=== PATIENT | female | born 1990 | race Caucasian/White ===

== ENCOUNTER 2019-03-15 11:09 | Outpatient (CLI) | payer MEDICAID ==
--- NOTE | 2019-03-15 15:54 | Non Stress Test Report ---
Non Stress Test Datetime Report Generated by CPN: 03/15/2019 15:54 DEMOGRAPHIC EGA NST: 35.0 INDICATION Indication for Study: Diabetes Mellitus Indication for Study (NST) Other: repeat NST from the office MONITORING Monitor Explained: Monitor Explained; Test Explained; Patient Verbalized Understanding Time on Monitor: 03/15/2019 11:28 Time off Monitor: 03/15/2019 11:50 NST Duration: 22 NST INTERVENTIONS NST Interventions: None Physician Notified NST: K Velazquez CNM BABY A: [id number] BABY A Movement : Present Contraction Frequency : none FHR Baseline : 125 Accelerations : 15X15 Decelerations : None Variability : Moderate 6-25bpm NST Review: Meets Criteria for Reactive NST NST Review and Verified By : B Baidy RN NST Results: Reactive NST COMMENTS NST Comments: care notes reviewed and signed for kick counts NST REPORT Report Trigger: Send Report
== END 2019-03-15 12:00 | disposition home or self-care (01) ==
LOC: LC 11:09
PROVIDERS: ATTEND Obstetrics & Gynecology
PROC: 4A1HXCZ Monitoring of Products of Conception, Cardiac Rate, External Approach (ICD-10-PCS; principal; 2019-03-15)
DX: O24.410 Gestational diabetes mellitus in pregnancy, diet controlled (principal); Z3A.35 35 weeks gestation of pregnancy
CPT/HCPCS: 59025

== ENCOUNTER 2019-04-11 19:46 | Inpatient (IN) | payer MEDICAID ==
[2019-04-11] MEDS ORDERED: ZOLPIDEM TARTRATE 5 MG TABLET PO PRN (20:19)
[2019-04-11] MEDS ORDERED: RINGERS SOLUTION,LACTATED 300 ML IV ONE (20:19)
[2019-04-11] MEDS ORDERED: OXYTOCIN/NORMAL SALINE 20 UNIT/1,000 ML RTUINJ IV PRN (20:19)
[2019-04-11] MEDS ORDERED: ACETAMINOPHEN 325 MG TABLET PO PRN (20:19)
[2019-04-11] MEDS ORDERED: MAG HYDROX/AL HYDROX/SIMETH SUSP 30 ML UDCUP PO PRN (20:19)
[2019-04-11] MEDS ORDERED: DINOPROSTONE 10 MG VAGINAL INSERT.SR PV ONE (20:19)
[2019-04-11] MEDS ORDERED: DINOPROSTONE 10 MG VAGINAL INSERT.SR ONE (20:27)
[2019-04-11 21:19] LABS: ABSOLUTE EOSINOPHILS # (AUTO) 0.1 10^3/uL (0.0-0.6); ABSOLUTE LYMPHOCYTES (AUTO) 2.4 10^3/uL (0.5-4.7); ABSOLUTE MONOCYTES (AUTO) 1.3 10^3/uL (0.1-1.4); ABSOLUTE NEUT (AUTO) 8.8 10^3/uL (1.7-8.2); BASOPHILS % (AUTO) 0.2 % (0-2); EOSINOPHILS % (AUTO) 0.7 % (0-6); HEMATOCRIT 35.1 % (36.0-47.0); LYMPHOCYTES % (AUTO) 19.2 % (13-45); MEAN CORPUSCULAR HEMOGLOBIN 31.5 pg (27.0-33.4); MEAN CORPUSCULAR HGB CONC 34.1 g/dL (32.0-36.0); MEAN CORPUSCULAR VOLUME 92 fl (80-97); MONOCYTES % (AUTO) 10.4 % (3-13); PLATELET COUNT 161 10^3/uL (150-450); RED CELL DISTRIBUTION WIDTH 12.7 % (11.5-14.0); SEGMENTED NEUTROPHILS % (AUTO) 69.5 % (42-78); TOTAL CELLS COUNTED % (AUTO) 100 %; WHITE BLOOD COUNT 12.6 10^3/uL (4.0-10.5)
[2019-04-11 21:22] LABS: APPEARANCE,URINE SLIGHTLY-CLOUDY; BILIRUBIN,URINE NEGATIVE (NEGATIVE); COLOR,URINE YELLOW; GLUCOSE, URINE 50 mg/dL (NEGATIVE); KETONES,URINE NEGATIVE (NEGATIVE); LEUKOCYTE ESTERASE,URINE TRACE (NEGATIVE); NITRITE,URINE NEGATIVE (NEGATIVE); PROTEIN,URINE NEGATIVE (NEGATIVE); URINE SPECIFIC GRAVITY 1.018; UROBILINOGEN,URINE NEGATIVE mg/dL (<2.0)
[2019-04-11 21:39] LABS: URINE AMPHETAMINES SCREEN NEGATIVE; URINE BARBITURATES SCREEN NEGATIVE; URINE BENZODIAZEPINES SCREEN NEGATIVE; URINE COCAINE SCREEN NEGATIVE; URINE MARIJUANA (THC) SCREEN NEGATIVE; URINE METHADONE SCREEN NEGATIVE; URINE PHENCYCLIDINE SCREEN NEGATIVE
[2019-04-12] MEDS ORDERED: ZOLPIDEM TARTRATE 5 MG TABLET ONE (02:36)
--- NOTE | 2019-04-12 05:41 | Admission Physical ---
Datetime Report Generated by CPN: 04/12/2019 05:41 CURRENT ADMISSION Chief Complaint: Uterine Contractions Indication for Induction- Other: gestational diabites Admit Impression : Term, Intrauterine Admit Plan: Admit to Unit; Initiate Labor Induction Protocol ALLERGIES Medication Allergies: No Medication Allergies: nickel (04/11/2019) Latex: No Latex Allergies OBSTETRICAL HISTORY EDC: 04/19/2019 00:00 : 1 Para: 0 Term: 0 : 0 SAB: 0 IAB: 0 Ectopic: 0 Livin Cesareans: 0 VBACs: 0 Multiple Births: 0 Gestational Diabetes: No Rh Sensitization: No Incompetent Cervix: No BONI: No Infertility: No ART Treatment: No Uterine Anomaly: No IUGR: No Hx Previous C/S: No Macrosomia: No Hx Loss/Stillborn: No PIH: No Hx : No Placenta Previa/Abruption: No Depression/PP Depression: No PTL/PROM: No Post Hemorrhage: No Current Procedures: Ultrasound; NST Obstetrical History Comments: G1- current GDM on glyburide SEE RECORDS Alcohol: No Marijuana : No Cocaine: No Other Illicit Drugs: No Cigarettes: Never Smoker. 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 Surgery: No Heart Disease: No Hosp/Surgery: No Autoimmune Disorder: No Anesthetic Complications: No Kidney Disease: No Abnormal Pap Smear: No Neuro/Epilepsy: No Psychiatric Disorders: No Other Medical Diseases: No Hepatitis/Liver Disease: No Significant Family History: No Varicosities/Phlebitis: No Trauma/Violence : No Thyroid Dysfunction: No INFECTIOUS HISTORY Gonorrhea: No Genital Herpes: No Chlamydia: No Tuberculosis: No Syphilis: No Hepatitis: No HIV/AIDS Exposure: No Rash or Viral Illness: No HPV: No PHYSICAL EXAM General: Normal HEENT: Normal Neurologic: Normal Thyroid: Normal Heart: Normal Lungs: Normal Breast: Deferred Back: Normal Abdomen: Normal Genitourinary Exam: Normal Extremities: Normal DTRs: Normal Pelvic Type: Adequate Vital Signs: Reviewed VAGINAL EXAM Dilatation: 1 Effacement: 90 Station: -2 MEMBRANES Pooling: Negative Membranes: Intact FETUS A EGA: 39.0 Monitoring: External US FHR- Baseline: 120 Decelerations: None FHR Category: Category I Presentation: Vertex Admit Comment: Plan induction for GDM PLANS FOR LABOR AND DELIVERY Labor and Delivery: None Pain Management: Epidural Feeding Preference: Breast Benefit of Breast Feed Discussed: Yes Circumcision: N/A INFORMED CONSENT Signature: with User ID: [email or web address]
[2019-04-12] MEDS ORDERED: OXYTOCIN/NORMAL SALINE 20 UNIT/1,000 ML RTUINJ ONE ×2 (09:46→21:45)
[2019-04-12] MEDS: RINGERS SOLUTION,LACTATED 1,000 ML IV PRN ×2 (10:02→19:52)
[2019-04-12] MEDS ORDERED: OXYTOCIN/NORMAL SALINE 20 UNIT/1,000 ML RTUINJ IV PRN ×2 (10:07→21:55)
[2019-04-12] MEDS ORDERED: FENTANYL CITRATE INJ/PF 100 MCG/2 ML AMPUL ONE (12:20)
[2019-04-12] MEDS ORDERED: EPHEDRINE SULFATE INJ 50 MG/1 ML AMPULE ONE (12:20)
[2019-04-12] MEDS ORDERED: FENTANYL/BUPIVACAINE/NS/PF 300 MCG/150 ML RTUINJ EPI ONE (12:20)
[2019-04-12] MEDS ORDERED: PHENYLEPHRINE HCL INJ/PF 10 MG/1 ML SDV ONE (12:20)
[2019-04-12] MEDS ORDERED: BUPIVACAINE HCL 0.25 % INJ/PF (2.5 MG/1 ML) 30 ML VIAL ONE (12:21)
[2019-04-12] MEDS ORDERED: OXYTOCIN 10 UNIT/ML VIAL ONE (19:38)
[2019-04-12] MEDS ORDERED: MISOPROSTOL 0.2 MG TABLET ONE (19:38)
[2019-04-12] MEDS ORDERED: LIDOCAINE 1% INJ-PF (10 MG/ML) 30 ML SDV ONE (19:38)
[2019-04-12] MEDS ORDERED: PSEUDOEPHEDRINE HCL 30 MG TABLET PO PRN (21:55)
[2019-04-12] MEDS ORDERED: DIPHENHYDRAMINE HCL 25 MG CAPSULE PO PRN (21:55)
[2019-04-12] MEDS ORDERED: ACETAMINOPHEN 650 MG SUPP.RECT PR PRN (21:55)
[2019-04-12] MEDS ORDERED: ACETAMINOPHEN WITH CODEINE #3 TABLET PO PRN (21:55)
[2019-04-12] MEDS ORDERED: ZOLPIDEM TARTRATE 5 MG TABLET PO PRN (21:55)
[2019-04-12] MEDS ORDERED: NA PHOS,M-B/NA PHOS,DI-BA (ADULT) 133 ML ENEMA PR PRN (21:55)
[2019-04-12] MEDS ORDERED: DIPH/PERTUSS(ACELL)/TETANUS VAC/PF 0.5 ML SYR (>=10YO) IM PRN (21:55)
[2019-04-12] MEDS ORDERED: MAGNESIUM HYDROXIDE SUSP 30 ML UDCUP PO PRN (21:55)
[2019-04-12] MEDS ORDERED: DIBUCAINE 1% OINTMENT 56 GM TP PRN (21:55)
[2019-04-12] MEDS ORDERED: GLYCERIN/WITCH HAZEL LEAF 1 EACH MED..WIPE TP PRN (21:55)
[2019-04-12] MEDS ORDERED: PROMETHAZINE HCL INJ 25 MG/1 ML VIAL IV PRN (21:55)
[2019-04-12] MEDS ORDERED: BENZOCAINE/MENTHOL AEROSOL SPRAY 56 ML TOP PRN (21:55)
[2019-04-12] MEDS ORDERED: PROMETHAZINE HCL 25 MG SUPP.RECT PR PRN (21:55)
[2019-04-12] MEDS ORDERED: PROMETHAZINE HCL 25 MG TABLET PO PRN (21:55)
[2019-04-12] MEDS ORDERED: MEASLES,MUMPS&RUBELLA VACC/PF 0.5 ML VIAL SUBCUT PRN (21:55)
[2019-04-13] MEDS: FAMOTIDINE 20 MG TABLET PO SCH ×3 (01:06→21:07)
[2019-04-13] MEDS: IBUPROFEN 800 MG TABLET PO SCH ×4 (01:06→21:07)
--- NOTE | 2019-04-13 03:38 | Delivery Summary ---
Del Sum A-C Datetime Report Generated by CPN: 04/13/2019 03:38 DELIVERY PERSONNEL DELIVERY PERSONNEL: [id number] Delivery Doctor:: David Nur MD Labor and Delivery Nurse:: Carmela Kennedy RNmedical lab scientist Nurse:: Dona Arora RN Nursery Nurse:: Valerie Horne RN Rn Child/SIXTH GRADE TEACHER: Concepcion Maya, ST MATERNAL INFORMATION Delivery Anesthesia: Epidural Medications After Delivery: Pitocin Bolus-Please Comment; Cytotec 1000mcg Per Rectum/Vagina Delivery QBL: 300 Maternal Complications: None LABOR SUMMARY EDC: 04/19/2019 00:00 No. Babies in Womb: 1 Attempted: No Labor Anesthesia: Epidural LABOR INFORMATION Reason for Induction: Not Applicable; Maternal Diabetes Onset of Labor: 04/12/2019 13:37 Complete Dilatation: 04/12/2019 19:31 Cervical Ripening Agents: Cervidil Oxytocin: Induction Group B Beta Strep: Negative Antibiotics # of Doses: 0 Antibiotics Time of Last Dose: n/a Name of Antibiotic Given: n/a Steroids Given: None Reason Steroids Not Administered: Not Applicable MEMBRANES Membranes Rupture Method: Artificial Rupture of Membranes: 04/12/2019 13:37 Length of Rupture (hr): 8.02 Amniotic Fluid Color: Clear Amniotic Fluid Amount: Large Amniotic Fluid Odor: Normal STAGES OF LABOR Stage 1 hr: 5 Stage 1 min: 54 Stage 2 hr: 2 Stage 2 min: 7 Stage 3 hr: 0 Stage 3 min: 2 Total Time in Labor hr: 8 Total Time in Labor min: 3 VAGINAL DELIVERY Episiotomy: None Laceration #1: Perineal; Vaginal Laceration Extension #1: First Degree Laceration Repair: Not Applicable Laceration Repair Note: repaired usual fashion 2-0 vicryl Sponge Count Correct: N/A Sharps Count Correct: N/A CSECTION DELIVERY Primary Indication: N/A Secondary Indication: N/A CSection Incidence: N/A Labor: N/A Elective: N/A CSection Incision: N/A BABY A INFORMATION Delivery Date/Time: 04/12/2019 21:38 Method of Delivery: Vaginal Born in Route : No : N/A Forceps: N/A Vacuum Extraction: Successful Shoulder Dystocia : No ASSISTED DELIVERY BABY A Indication for Assisted Delivery: poor maternal effort Catheter Prior to Procedure: Yes Station Vacuum/Forcep Apply: +2 Vacuum Number of Pulls: 3 Vacuum Number of PopOffs: 0 Reduce Pressure btwn Ctx: Yes Type of Forceps: kiwi PRESENTATION/POSITION BABY A Presentation: Cephalic Cephalic Presentation: Vertex Vertex Position: Occipital Anterior Breech Presentation: N/A PLACENTA INFORMATION BABY A Placenta Delivery Time : 04/12/2019 21:40 Placenta Method of Delivery: Spontaneous Placenta Status: Delivered SCORES BABY A Heart Rate 1 min: >100 bpm Resp Effort 1 min: Good Cry Reflex Irritability 1 min: Cough or Sneeze or Pulls Away Muscle Tone 1 min: Active Motion Color 1 min: Blue/Pale SCORE 1 MIN: 8 Heart Rate 5 min: >100 bpm Resp Effort 5 min: Good Cry Reflex Irritability 5 min: Cough or Sneeze or Pulls Away Muscle Tone 5 min: Active Motion Color 5 min: Body [place], Extremities Blue SCORE 5 MIN: 9 INFORMATION BABY A Gestational Age at Delivery: 39.0 Gestational Status: Full Term- 39- 40.6 Weeks Infant Outcome : Liveborn Infant Condition : Stable Sex: Female IDENTIFICATION BABY A Verification Date/Time: 04/12/2019 22:11 ID Band Number: [id number] Mother's Name Verified: Yes Infant RN Verifying : rn rafael and kossmann WEIGHT/LENGTH BABY A Birthweight (gm): 3967 Infant Weight (lb): 8 Weight (oz): 12 Infant Length (in): 19.50 Length (cm): 49.53 CORD INFORMATION BABY A No. Cord Vessels: 3 Nuchal Cord : N/A Cord Blood Taken: Yes-For Eval (Mom's Blood Type - or O+) Suction: None ASSESSMENT BABY A Infant Complications: None Physical Findings at Delivery: Within Normal Limits Respirations: Appears Normal Skin to Skin: Yes Transferred To: Remains with Mother BABY B INFORMATION : N/A SIGNATURES Signature: with User ID: [email or web address]
[2019-04-13 06:29] LABS: HEMATOCRIT 28.4 % (36.0-47.0); MEAN CORPUSCULAR HEMOGLOBIN 31.7 pg (27.0-33.4); MEAN CORPUSCULAR HGB CONC 34.6 g/dL (32.0-36.0); MEAN CORPUSCULAR VOLUME 92 fl (80-97); PLATELET COUNT 152 10^3/uL (150-450); RED BLOOD COUNT 3.09 10^6/uL (3.72-5.28); RED CELL DISTRIBUTION WIDTH 12.8 % (11.5-14.0); WHITE BLOOD COUNT 15.9 10^3/uL (4.0-10.5)
[2019-04-13 06:33] LABS: HEMOGLOBIN 9.8 g/dL (12.0-15.5)
--- NOTE | 2019-04-13 09:08 | PDOC PROGRESS REPORT ---
Subjective-OB Progress Note for:: 04/13/19 Subjective: reports bleeding slowing, pain controlled with current meds, denies needs Physical Exam (OB) Vital Signs: Temp Pulse Resp BP Pulse Ox 98.8 F 107 H 17 129/71 H 99 04/13/19 00:09 04/13/19 00:09 04/13/19 00:09 04/13/19 00:09 04/13/19 00:09 Intake & Output 04/12/19 04/13/19 04/14/19 06:59 06:59 06:59 Intake Total 1000 Balance 1000 Weight 112 kg - Abdomen Description: Tender, Soft, Round Hernia Present: - possible umbilical Fundal Description: Firm, Midline Fundal Height: u/u - u/2 - Abdominal Distension: No distension - Extremities Lower extremities: Cornelius's sign - neg Ankle: Normal, Nontender Objective-Diagnostic Laboratory: 04/13/19 05:39 04/13/19 05:39 WBC 15.9 H RBC 3.09 L Hgb 9.8 L D Hct 28.4 L MCV 92 MCH 31.7 MCHC 34.6 RDW 12.8 Plt Count 152 Assessment and Plan(PN) - Assessment and Plan (1) Encounter for induction of labor Is this a current diagnosis for this admission?: Yes (2) Gestational diabetes mellitus (GDM) controlled on oral hypoglycemic drug Is this a current diagnosis for this admission?: Yes (3) Obstetrical laceration, first degree Is this a current diagnosis for this admission?: Yes (4) Vacuum extraction, delivered, current hospitalization Is this a current diagnosis for this admission?: Yes - Time Spent with Patient Time with patient: Less than 15 minutes - Disposition Anticipated Discharge: Home Within: within 24 hours
[2019-04-13] MEDS: FERROUS SULFATE 325 MG TABLET PO SCH ×2 (11:37→18:23)
[2019-04-13] MEDS: PRENATAL VITAMIN W DHA CAPSULE PO SCH (11:37)
[2019-04-13] MEDS: DOCUSATE SODIUM 100 MG CAPSULE PO SCH ×2 (11:37→18:23)
[2019-04-13] MEDS: SENNOSIDES/DOCUSATE 8.6-50 MG 1 EACH TABLET PO SCH (11:38)
[2019-04-14] MEDS: IBUPROFEN 800 MG TABLET PO SCH ×2 (05:20→14:22)
[2019-04-14 08:24] VITALS: BP 126/64
[2019-04-14] MEDS: FAMOTIDINE 20 MG TABLET PO SCH (09:47)
[2019-04-14] MEDS: DOCUSATE SODIUM 100 MG CAPSULE PO SCH (09:47)
[2019-04-14] MEDS: PRENATAL VITAMIN W DHA CAPSULE PO SCH (09:47)
[2019-04-14] MEDS: FERROUS SULFATE 325 MG TABLET PO SCH (09:47)
[2019-04-14] MEDS: SENNOSIDES/DOCUSATE 8.6-50 MG 1 EACH TABLET PO SCH (09:47)
--- NOTE | 2019-04-14 11:53 | PDOC DISCHARGE SUMMARY ---
Impression - Admit/DC Date/PCP Admission Date/Primary Care Provider: 04/11/19 19:46 GLADYS SKY MD Discharge Date: 04/14/19 - Discharge Diagnosis (1) Encounter for induction of labor Is this a current diagnosis for this admission?: Yes (2) Gestational diabetes mellitus (GDM) controlled on oral hypoglycemic drug Is this a current diagnosis for this admission?: Yes (3) Obstetrical laceration, first degree Is this a current diagnosis for this admission?: Yes (4) Vacuum extraction, delivered, current hospitalization Is this a current diagnosis for this admission?: Yes - Additional Information Discharge Diet: Regular Discharge Activity: Balance Activity w/Rest, Pelvic Rest Referrals: GLADYS SKY MD [Primary Care Provider] - Prescriptions: Ibuprofen [Motrin 800 mg Tablet] 800 mg PO Q8HP PRN #60 tablet PRN Reason: Home Medications: [id number]/Iron/Folic/Docusate [Citranatal Rx Tablet] 1 each PO DAILY 03/15/19 Ibuprofen [Motrin 800 mg Tablet] 800 mg PO Q8HP PRN #60 tablet 04/14/19 HPI Gestational Age: 39 Reason(s) for Admission: Induction of Labor - for GDM A2 Procedures: NST Intrapartum Procedure(s): Vacuum Extraction Complication(s): Laceration-Vaginal Laceration-Degree: 1st Hospital Course Hospital Course: underwent IOL for GDM, VAD with 1st degree laceration repaired. stable PP day 2, ready for discharge Results Laboratory Results: WBC 15.9 10^3/uL (4.0-10.5) H 04/13/19 05:39 RBC 3.09 10^6/uL (3.72-5.28) L 04/13/19 05:39 Hgb 9.8 g/dL (12.0-15.5) L D 04/13/19 05:39 Hct 28.4 % (36.0-47.0) L 04/13/19 05:39 MCV 92 fl (80-97) 04/13/19 05:39 MCH 31.7 pg (27.0-33.4) 04/13/19 05:39 MCHC 34.6 g/dL (32.0-36.0) 04/13/19 05:39 RDW 12.8 % (11.5-14.0) 04/13/19 05:39 Plt Count 152 10^3/uL (150-450) 04/13/19 05:39 Lymph % (Auto) 19.2 % (13-45) 04/11/19 21:02 [place] % (Auto) 10.4 % (3-13) 04/11/19 21:02 Eos % (Auto) 0.7 % (0-6) 04/11/19 21:02 Baso % (Auto) 0.2 % (0-2) 04/11/19 21:02 Absolute Neuts (auto) 8.8 10^3/uL (1.7-8.2) H 04/11/19 21:02 Absolute Lymphs (auto) 2.4 10^3/uL (0.5-4.7) 04/11/19 21:02 Absolute Monos (auto) 1.3 10^3/uL (0.1-1.4) 04/11/19 21:02 Absolute Eos (auto) 0.1 10^3/uL (0.0-0.6) 04/11/19 21:02 Absolute Basos (auto) 0.0 10^3/uL (0.0-0.2) 04/11/19 21:02 Seg Neutrophils % 69.5 % (42-78) 04/11/19 21:02 Urine Color YELLOW 04/11/19 19:53 Urine Appearance SLIGHTLY-CLOUDY 04/11/19 19:53 Urine pH 5.0 (5.0-9.0) 04/11/19 19:53 Ur Specific [place] 1.018 04/11/19 19:53 Urine Protein NEGATIVE mg/dL (NEGATIVE) 04/11/19 19:53 Urine Glucose (UA) 50 mg/dL (NEGATIVE) H 04/11/19 19:53 Urine Ketones NEGATIVE mg/dL (NEGATIVE) 04/11/19 19:53 Urine Blood NEGATIVE (NEGATIVE) 04/11/19 19:53 Urine Nitrite NEGATIVE (NEGATIVE) 04/11/19 19:53 Urine Bilirubin NEGATIVE (NEGATIVE) 04/11/19 19:53 Urine Urobilinogen NEGATIVE mg/dL (<2.0) 04/11/19 19:53 Ur Leukocyte Esterase TRACE (NEGATIVE) H 04/11/19 19:53 Urine Ascorbic Acid NEGATIVE (NEGATIVE) 04/11/19 19:53 Urine Opiates Screen NEGATIVE 04/11/19 19:53 Urine Methadone Screen NEGATIVE 04/11/19 19:53 Ur Barbiturates Screen NEGATIVE 04/11/19 19:53 Ur Phencyclidine Scrn NEGATIVE 04/11/19 19:53 Ur Amphetamines Screen NEGATIVE 04/11/19 19:53 U Benzodiazepines Scrn NEGATIVE 04/11/19 19:53 Urine Cocaine Screen NEGATIVE 04/11/19 19:53 U Marijuana (THC) Screen NEGATIVE 04/11/19 19:53 RPR NONREACTIVE (NONREACTIVE) 04/11/19 21:02 Blood Type O POSITIVE 04/11/19 21:02 Antibody Screen NEGATIVE 04/11/19 21:02 Plan Plan of Treatment: f/u 4 weeks at [facility] for PP check
== END 2019-04-14 14:59 | disposition home or self-care (01) | DRG 807 ==
LOC: LR 19:46 → 2S 04-13 00:03
PROVIDERS: ADMIT Obstetrics & Gynecology; ATTEND Obstetrics & Gynecology Gynecology
PROC: 10D07Z6 Extraction of Products of Conception, Vacuum, Via Natural or Artificial Opening (ICD-10-PCS; principal; 2019-04-12)
PROC: 10907ZC Drainage of Amniotic Fluid, Therapeutic from Products of Conception, Via Natural or Artificial Opening (ICD-10-PCS; 2019-04-12)
PROC: 0HQ9XZZ Repair Perineum Skin, External Approach (ICD-10-PCS; 2019-04-12)
DX: O24.425 Gestational diabetes mellitus in childbirth, controlled by oral hypoglycemic drugs (principal); Z37.0 Single live birth; O75.81 Maternal exhaustion complicating labor and delivery; O70.0 First degree perineal laceration during delivery; Z3A.39 39 weeks gestation of pregnancy
CPT/HCPCS: 36415; 80307; 81005; 85025; 85027; 86592; 86850; 86900; 86901; 94760; J2370; J2590; J3010; J3490

== ENCOUNTER 2019-05-13 09:32 | Observation (INO) | payer MEDICAID ==
[2019-05-13] MEDS ORDERED: KETOROLAC TROMETHAMINE INJ/PF 30 MG/1 ML SDV IV ONE ×2 (10:53→14:30)
[2019-05-13] MEDS ORDERED: ONDANSETRON HCL INJ/PF 4 MG/2 ML SDV IV ONE ×2 (10:53→14:30)
--- NOTE | 2019-05-13 10:55 | ER Document Report ---
ED Medical Screen (RME) - General Chief Complaint: Abdominal Pain Stated Complaint: ABDOMINAL PAIN Time Seen by Provider: 05/13/19 10:50 Primary Care Provider: GLADYS SKY MD [Primary Care Provider] - Follow up as needed TRAVEL OUTSIDE OF THE [place] IN LAST 30 DAYS: No - HPI Notes: 05/13/19 10:54 29 year old female to the ED with C/O bilateral pelvic pain since yesterday. She states "it's my ovaries". She has a baby about one month ago. She has not had a period since having the baby. Admits to associated [place]. Denies diarrhea. Denies urinary complaints. I have performed a medical screening exam on the patient and determined the patient will need further management by mainside provider. I have placed initial orders to help expedite his care. - Related Data Allergies/Adverse Reactions: nickel Adverse Reaction (Verified 04/11/19 19:57) Home Medications: vitamins Physical Exam - Vital signs Vitals: Temp Pulse Resp BP Pulse Ox 100.0 F 91 16 104/59 L 97 05/13/19 10:20 05/13/19 10:20 05/13/19 10:20 05/13/19 10:20 05/13/19 10:20 Course - Vital Signs Vital signs: Temp Pulse Resp BP Pulse Ox 100.0 F 91 16 104/59 L 97 05/13/19 10:48 05/13/19 10:20 05/13/19 10:48 05/13/19 10:20 05/13/19 10:48 Doctor's Discharge - Discharge Referrals: GLADYS SKY MD [Primary Care Provider] - Follow up as needed
[2019-05-13 12:10] LABS: AMORPHOUS SEDIMENT,URINE TRACE /HPF; APPEARANCE,URINE SLIGHTLY-CLOUDY; BILIRUBIN,URINE NEGATIVE (NEGATIVE); COLOR,URINE AMBER; GLUCOSE, URINE NEGATIVE (NEGATIVE); KETONES,URINE NEGATIVE (NEGATIVE); LEUKOCYTE ESTERASE,URINE LARGE (NEGATIVE); NITRITE,URINE NEGATIVE (NEGATIVE); PROTEIN,URINE 100 mg/dL (NEGATIVE); URINE SPECIFIC GRAVITY 1.031; UROBILINOGEN,URINE NEGATIVE mg/dL (<2.0)
[2019-05-13 12:11] LABS: ABSOLUTE LYMPHOCYTES (AUTO) 1.4 10^3/uL (0.5-4.7); ABSOLUTE MONOCYTES (AUTO) 1.5 10^3/uL (0.1-1.4); ABSOLUTE NEUT (AUTO) 12.7 10^3/uL (1.7-8.2); BASOPHILS % (AUTO) 0.1 % (0-2); HEMATOCRIT 37.8 % (36.0-47.0); HEMOGLOBIN 12.7 g/dL (12.0-15.5); LYMPHOCYTES % (AUTO) 8.7 % (13-45); MEAN CORPUSCULAR HEMOGLOBIN 30.1 pg (27.0-33.4); MEAN CORPUSCULAR HGB CONC 33.6 g/dL (32.0-36.0); MEAN CORPUSCULAR VOLUME 90 fl (80-97); MONOCYTES % (AUTO) 9.5 % (3-13); PLATELET COUNT 253 10^3/uL (150-450); RED BLOOD COUNT 4.21 10^6/uL (3.72-5.28); RED CELL DISTRIBUTION WIDTH 13.2 % (11.5-14.0); SEGMENTED NEUTROPHILS % (AUTO) 81.7 % (42-78); TOTAL CELLS COUNTED % (AUTO) 100 %; WHITE BLOOD COUNT 15.6 10^3/uL (4.0-10.5)
[2019-05-13 12:32] LABS: ALBUMIN 4.5 g/dL (3.5-5.0); ALKALINE PHOSPHATASE 72 U/L (38-126); ANION GAP 13 (5-19); ASPARTATE AMINO TRANSFERASE 22 U/L (14-36); BILIRUBIN,DIRECT 0.2 mg/dL (0.0-0.4); BILIRUBIN,TOTAL 0.7 mg/dL (0.2-1.3); BLOOD UREA NITROGEN 15 mg/dL (7-20); CALCIUM 9.3 mg/dL (8.4-10.2); CARBON DIOXIDE 27 mmol/L (22-30); CHLORIDE 101 mmol/L (98-107); GLUCOSE 92 mg/dL (75-110); POTASSIUM 4.3 mmol/L (3.6-5.0); TOTAL PROTEIN 7.6 g/dL (6.3-8.2)
--- NOTE | 2019-05-13 13:45 | RADIOLOGY REPORT (SQ) ---
EXAM DESCRIPTION: U/S NON OB PEL TV W/DOPPLER COMPLETED DATE/TIME: 05/13/2019 1:17 pm REASON FOR STUDY: pelvic pain COMPARISON: None. TECHNIQUE: Dynamic and static grayscale images acquired of the pelvis via transvaginal approach and recorded on PACS. Additional selected color Doppler and spectral images recorded. LIMITATIONS: None. FINDINGS: UTERUS: Contour normal. No mass. ENDOMETRIAL STRIPE: No focal or generalized thickening. No masses. CERVIX: No nabothian cysts. RIGHT OVARY AND DOPPLER: Normal size. No worrisome masses. Normal arterial vascular flow without evid ence for torsion. LEFT OVARY AND DOPPLER: Normal size. No worrisome masses. Normal arterial vascular flow without evide nce for torsion. FREE FLUID: None noted. OTHER: No other significant finding. MEASUREMENTS: UTERUS: 8.1 cm ENDOMETRIAL STRIPE: 2.1 mm RIGHT OVARY: 4.3 cm LEFT OVARY: 2.3 cm IMPRESSION: NORMAL TRANSVAGINAL PELVIC ULTRASOUND. TECHNICAL DOCUMENTATION: JOB ID: [id number] [employer]- All Rights Reserved Rev-10/13 Reading location - IP/workstation name: [email or web address]
[2019-05-13] MEDS ORDERED: MORPHINE SULFATE 10 MG/ML INJ IV ONE ×2 (14:30→17:43)
[2019-05-13] MEDS ORDERED: NORMAL SALINE 1000 ML 1,000 ML IV ONE ×2 (14:30→17:12)
--- NOTE | 2019-05-13 16:00 | RADIOLOGY REPORT (SQ) ---
EXAM DESCRIPTION: CT ABD/PELVIS WITH IV ONLY COMPLETED DATE/TIME: 05/13/2019 3:47 pm REASON FOR STUDY: bilat lq pain/greateer on right COMPARISON: None. TECHNIQUE: CT scan of the abdomen and pelvis performed using helical scanning technique with dynamic intravenous contrast injection. No oral contrast. Images reviewed with lung, soft tissue, and bone windows. Reconstructed coronal and sagittal MPR images reviewed. Delayed images for evaluation of the urinary system also acquired. All images stored on PACS. All CT scanners at this facility use dose modulation, iterative reconstruction, and/or weight based d osing when appropriate to reduce radiation dose to as low as reasonably achievable (ALARA). [facility]: Dose Right [facility]: CareDose [facility]: Dose Right [facility]: Teradose 4D [facility]: NLT SPINE CONTRAST TYPE AND DOSE: contrast/concentration: Isovue 350.00 mg/ml; Total Contrast Delivered: 100.0 ml; Total Saline Delivered: 72.0 ml RENAL FUNCTION: None required. The patient is less than 50 years old. RADIATION DOSE: CT Rad equipment meets quality standard of care and radiation dose reduction techniq ues were employed. CTDIvol: 13.4 - 17.3 mGy. DLP: 1623 mGy-cm.. LIMITATIONS: None. FINDINGS: LOWER CHEST: No significant findings. No nodules or infiltrates. LIVER: Normal size. No masses. No dilated ducts. SPLEEN: Normal size. No focal lesions. PANCREAS: No masses. No significant calcifications. No adjacent inflammation or peripancreatic fluid collections. Pancreatic duct not dilated. GALLBLADDER: Gallstones. No inflammatory changes to suggest cholecystitis. ADRENAL GLANDS: No significant masses or asymmetry. RIGHT KIDNEY AND URETER: No solid masses. No significant calcifications. No hydronephrosis or hyd roureter. LEFT KIDNEY AND URETER: No solid masses. No significant calcifications. No hydronephrosis or hydr oureter. AORTA AND VESSELS: No aneurysm. No dissection. Renal arteries, SMA, celiac without stenosis. RETROPERITONEUM: No retroperitoneal adenopathy, hemorrhage or masses. BOWEL AND PERITONEAL CAVITY: No masses or inflammatory changes. No free fluid or peritoneal masses. APPENDIX: The appendix is enlarged to 1.5 cm and contains appendicoliths at the neck and near the tip , with mild adjacent fat stranding (series 601, image 33, series 3, image 60). PELVIS: No mass. No free fluid. Normal bladder. ABDOMINAL WALL: No masses. No hernias. BONES: No significant or acute findings. OTHER: No other significant finding. IMPRESSION: 1. The appendix is enlarged to 1.5 cm and contains appendicoliths at the neck and near t he tip, with mild adjacent fat stranding (series 601, image 33, series 3, image 60). Findings are co nsistent with acute appendicitis. No evidence of perforation or abscess. 2. Cholelithiasis. TECHNICAL DOCUMENTATION: JOB ID: [id number] Quality ID # [id number]: Final reports with documentation of one or more dose reduction techniques (e.g., Au tomated exposure control, adjustment of the mA and/or kV according to patient size, use of iterative reconstruction technique) 2010 [employer]- All Rights Reserved Reading location - IP/workstation name: [email or web address]
[2019-05-13] MEDS ORDERED: RINGERS SOLUTION,LACTATED 1,000 ML IV PRN (17:36)
--- NOTE | 2019-05-13 17:43 | PDOC H&P ---
History of Present Illness Admission Date/PCP: GLADYS SKY MD Patient complains of: Abdominal pain History of Present Illness: LIO KAPLAN is a 29 year old female The emergency room via ground rescue complaining of 2-day history of abdominal pain, nausea, anorexia. She presents emergency department with localized tenderness to the pelvic area right greater than left. CT scan of the abdomen and pelvis without oral contrast but with IV contrast demonstrates a thickened appendix with periappendiceal stranding and multiple appendicoliths consistent with acute appendicitis. He was consulted and the patient is advised admission for definitive management. She is 1 month status post normal spontaneous vaginal delivery. Past Medical History Past Medical History: History of a scoliosis, chronic neck and back pain Past Surgical History Past Surgical History: Status post a normal spontaneous vaginal delivery. Social History Information Source: Patient Smoking Status: Never Smoker Electronic Cigarette use?: No Hx Recreational Drug Use: No Past Social History Note: Patient is originally from [facility] Family History Family History: None Parental Family History Reviewed: No Children Family History Reviewed: No Sibling(s) Family History Reviewed.: No Medication/Allergy Home Medications: [id number]/Iron/Folic/Docusate [Citranatal Rx Tablet] 1 each PO DAILY 03/15/19 Ibuprofen [Motrin 800 mg Tablet] 800 mg PO Q8HP PRN #60 tablet 04/14/19 Allergies/Adverse Reactions: nickel Adverse Reaction (Verified 04/11/19 19:57) Review of Systems Constitutional: PRESENT: as per HPI Eyes: ABSENT: visual disturbances Ears: ABSENT: hearing changes Cardiovascular: ABSENT: chest pain, dyspnea on exertion, edema, orthropnea, palpitations Respiratory: ABSENT: cough, hemoptysis Gastrointestinal: PRESENT: as per HPI Integumentary: ABSENT: rash, wounds Neurological: ABSENT: abnormal gait, abnormal speech, confusion, dizziness, foc al weakness, syncope Endocrine: ABSENT: cold intolerance, heat intolerance, polydipsia, polyuria Hematologic/Lymphatic: ABSENT: easy bleeding, easy bruising Physical Exam Vital Signs: Temp Pulse Resp BP Pulse Ox 100.0 F 91 16 104/59 L 97 05/13/19 10:48 05/13/19 10:20 05/13/19 10:48 05/13/19 10:20 05/13/19 10:48 Intake & Output 05/12/19 05/13/19 05/14/19 06:59 06:59 06:59 Intake Total 1000 Balance 1000 Weight 95.3 kg General appearance: PRESENT: mild distress Head exam: PRESENT: normocephalic Eye exam: PRESENT: EOMI Mouth exam: PRESENT: dry mucosa Neck exam: PRESENT: full ROM Respiratory exam: PRESENT: clear to auscultation david Cardiovascular exam: PRESENT: RRR Pulses: PRESENT: normal carotid pulses, normal radial pulses, normal femoral pulses, normal dorsalis pedis pul GI/Abdominal exam: PRESENT: other - Mild erythema and history of the abdominal wall. Possible small umbilical hernia. Exquisitely tender right lower quadrant with guarding. Minimal abdominal distention. Rectal exam: PRESENT: deferred Extremities exam: PRESENT: full ROM Musculoskeletal exam: PRESENT: full ROM Neurological exam: PRESENT: oriented to person, oriented to place, oriented to time, oriented to situation Psychiatric exam: PRESENT: appropriate affect Skin exam: PRESENT: dry Results Laboratory Results: 05/13/19 11:20 05/13/19 11:20 05/13/19 05/13/19 05/13/19 11:20 11:20 11:20 WBC 15.6 H RBC 4.21 Hgb 12.7 Hct 37.8 MCV 90 MCH 30.1 MCHC 33.6 RDW 13.2 Plt Count 253 Seg Neutrophils % 81.7 H Sodium 140.7 Potassium 4.3 Chloride 101 Carbon Dioxide 27 Anion Gap 13 BUN 15 Creatinine 0.87 Est GFR ( Amer) > 60 Glucose 92 Calcium 9.3 Total Bilirubin 0.7 AST 22 Alkaline Phosphatase 72 Total Protein 7.6 Albumin 4.5 Serum HCG, Qual NEGATIVE Urine Color Urine Appearance Urine pH Ur Specific [place] Urine Protein Urine Glucose (UA) Urine Ketones Urine Blood Urine Nitrite Ur Leukocyte Esterase Urine WBC (Auto) Urine RBC (Auto) 05/13/19 11:20 WBC RBC Hgb Hct MCV MCH MCHC RDW Plt Count Seg Neutrophils % Sodium Potassium Chloride Carbon Dioxide Anion Gap BUN Creatinine Est GFR ( Amer) Glucose Calcium Total Bilirubin AST Alkaline Phosphatase Total Protein Albumin Serum HCG, Qual Urine Color SUPA Urine Appearance SLIGHTLY-CLOUDY Urine pH 7.0 Ur Specific [place] 1.031 Urine Protein 100 H Urine Glucose (UA) NEGATIVE Urine Ketones NEGATIVE Urine Blood SMALL H Urine Nitrite NEGATIVE Ur Leukocyte Esterase LARGE H Urine WBC (Auto) 49 Urine RBC (Auto) 43 Impressions: Transvaginal US 05/13/19 10:53 IMPRESSION: NORMAL TRANSVAGINAL PELVIC ULTRASOUND. Abdomen/Pelvis CT 05/13/19 14:29 IMPRESSION: 1. The appendix is enlarged to 1.5 cm and contains appendicoliths at the neck and near the tip, with mild adjacent fat stranding (series 601, image 33, series 3, image 60). Findings are consistent with acute appendicitis. No evidence of perforation or abscess. 2. Cholelithiasis. Assessment & Plan - Diagnosis (1) Acute appendicitis Qualifiers: Acute appendicitis type: with localized peritonitis Is this a current diagnosis for this admission?: Yes Plan: Impression: Acute appendicitis based on clinical history and the radiologic findings. Patient 1 month Recommendations: 1. Admit, n.p.o., IV fluids IV antibiotics 2. Interval laparoscopic, possible open appendectomy, [facility], general anesthesia, May 13. (2) Bruxism Is this a current diagnosis for this admission?: Yes - Time Time Spent: 30 to 50 Minutes Critical Time spent with patient: Less than 15 minutes Medications reviewed and adjusted accordingly: Yes Anticipated discharge: Home - Inpatient Certification Based on my medical assessment, after consideration of the patient's comorbidities, presenting symptoms, or acuity I expect that the services needed warrant INPATIENT care.: Yes I certify that my determination is in accordance with my understanding of Medicare's requirements for reasonable and necessary INPATIENT services [42 CFR 412.3e].: Yes Medical Necessity: Need For IV Fluids, Need for Pain Control, Need for IV Antibiotics, Need for Surgery
--- NOTE | 2019-05-13 17:43 | ER Document Report ---
ED General - General Chief Complaint: Abdominal Pain Stated Complaint: ABDOMINAL PAIN Time Seen by Provider: 05/13/19 10:50 Primary Care Provider: GLADYS SKY MD [Primary Care Provider] - Follow up as needed Mode of Arrival: Ambulatory Information source: Patient TRAVEL OUTSIDE OF THE [place] IN LAST 30 DAYS: No - HPI Notes: Patient presents with abdominal pain. She states that it started yesterday and is progressively been getting worse. It is bilateral lower quadrant but worse on the right. It increases any type of movement and is better when she lays still. No vaginal discharge or bleeding. She did give 1 month ago and has had no subsequent problems. The pain radiates across her lower abdomen. It is constant and moderate to severe. She describes it as sharp. No problems with stool. She last ate at midnight last night. She has had some nausea and vomiting. No previous history of similar pain. - Related Data Allergies/Adverse Reactions: nickel Adverse Reaction (Verified 04/11/19 19:57) Home Medications: vitamins Past Medical History - General Information source: Patient - Social History Smoking Status: Never Smoker Frequency of alcohol use: None Drug Abuse: None Family History: Reviewed & Not Pertinent Patient has suicidal ideation: No Patient has homicidal ideation: No Past Surgical History: Reports: Hx Oral Surgery Review of Systems - Review of Systems Constitutional: Malaise, Weakness. denies: Chills, Fever Cardiovascular: denies: Chest pain, Palpitations Respiratory: denies: Cough, Short of breath Neurological/Psychological: denies: Confusion, Dementia -: Yes All other systems reviewed and negative Physical Exam - Vital signs Vitals: Temp Pulse Resp BP Pulse Ox 100.0 F 91 16 104/59 L 97 05/13/19 10:20 05/13/19 10:20 05/13/19 10:20 05/13/19 10:20 05/13/19 10:20 Interpretation: Normal - General General appearance: Appears well, Alert - HEENT Head: Normocephalic, Atraumatic Eyes: Normal Pupils: PERRL - Respiratory Respiratory status: No respiratory distress Chest status: Nontender Breath sounds: Normal Chest palpation: Normal - Cardiovascular Rhythm: Regular Heart sounds: Normal auscultation Murmur: No - Abdominal Inspection: Normal Distension: No distension Bowel sounds: Normal Tenderness: Tender - Patient has bilateral lower quadrant tenderness with the right greater than the left. Organomegaly: No organomegaly - Back Back: Normal, Nontender - Extremities General upper extremity: Normal inspection, Nontender, Normal color, Normal ROM, Normal temperature General lower extremity: Normal inspection, Nontender, Normal color, Normal ROM, Normal temperature, Normal weight bearing. No: Cornelius's sign - Neurological Neuro grossly intact: Yes Cognition: Normal Orientation: AAOx4 Kaveh Coma Scale Eye Opening: Spontaneous Kaveh Coma Scale Verbal: Oriented Cromwell Coma Scale Motor: Obeys Commands Cromwell Coma Scale Total: 15 Speech: Normal Motor strength normal: LUE, RUE, LLE, RLE Sensory: Normal - Psychological Associated symptoms: Normal affect, Normal mood - Skin Skin Temperature: Warm Skin Moisture: Dry Skin Color: Normal Course - Re-evaluation Re-evalutation: 05/13/19 17:42 Patient presents with lower quadrant abdominal pain. CT scan shows appendicitis. - Vital Signs Vital signs: Temp Pulse Resp BP Pulse Ox 100.0 F 91 16 104/59 L 97 05/13/19 10:48 05/13/19 10:20 05/13/19 10:48 05/13/19 10:20 05/13/19 10:48 - Laboratory Result Diagrams: 05/13/19 11:20 05/13/19 11:20 Laboratory results interpreted by me: 05/13/19 05/13/19 11:20 11:20 WBC 15.6 H Lymph % (Auto) 8.7 L Absolute Neuts (auto) 12.7 H Absolute Monos (auto) 1.5 H Seg Neutrophils % 81.7 H Urine Protein 100 H Urine Blood SMALL H Ur Leukocyte Esterase LARGE H - Diagnostic Test Radiology reviewed: Image reviewed, Reports reviewed Discharge - Discharge Clinical Impression: Appendicitis Qualifiers: Appendicitis type: acute appendicitis Acute appendicitis type: with localized peritonitis Appendicitis gangrene presence: without gangrene Appendicitis perforation presence: without perforation Appendicitis abscess presence: without abscess Qualified Code(s): K35.30 - Acute appendicitis with localized peritonitis, without perforation or gangrene Condition: Stable Disposition: ADMITTED INPATIENT Admitting Provider: Surgicalist Unit Admitted: OR Referrals: GLADYS SKY MD [Primary Care Provider] - Follow up as needed
[2019-05-13] MEDS ORDERED: CEFAZOLIN 1 GM/D5W RTU 1 GM/50 ML RTUPB IV SCH ×3 (17:45→22:00)
[2019-05-13] MEDS ORDERED: DEXAMETHASONE SOD PHOSPHATE INJ 4 MG/1 ML VIAL ONE (18:01)
[2019-05-13] MEDS ORDERED: KETOROLAC TROMETHAMINE 60 MG/2 ML SDV ONE (18:01)
[2019-05-13] MEDS ORDERED: METOCLOPRAMIDE HCL INJ/PF 10 MG/2 ML SDV ONE (18:01)
[2019-05-13] MEDS ORDERED: SUCCINYLCHOLINE CHLORIDE INJ 200 MG/10 ML VIAL ONE (18:01)
[2019-05-13] MEDS ORDERED: ROCURONIUM BROMIDE INJ 50 MG/5 ML VIAL IV ONE (18:01)
[2019-05-13] MEDS ORDERED: ONDANSETRON HCL INJ/PF 4 MG/2 ML SDV ONE (18:01)
[2019-05-13] MEDS ORDERED: GLYCOPYRROLATE 1 MG/5 ML VIAL ONE (18:01)
[2019-05-13] MEDS ORDERED: LIDOCAINE 2% INJ-PF (20 MG/ML) 2 ML AMPUL ONE (18:01)
[2019-05-13] MEDS ORDERED: NEOSTIGMINE METHYLSULFATE 10 MG/10 ML VIAL ONE (18:01)
[2019-05-13] MEDS ORDERED: MIDAZOLAM 2 MG/2 ML INJ ONE (18:15)
[2019-05-13] MEDS ORDERED: PROPOFOL INJ 200 MG/20 ML VIAL IV ONE (18:16)
[2019-05-13] MEDS ORDERED: HYDROMORPHONE HCL INJ/PF 2 MG/ML AMPULE ONE (18:16)
[2019-05-13] MEDS ORDERED: BUPIVACAINE HCL 0.25 % INJ/PF (2.5 MG/1 ML) 30 ML VIAL ONE (18:49)
[2019-05-13] MEDS ORDERED: OXYCODONE-ACETAMINOPHEN 5-325 MG TABLET PO PRN ×2 (18:57)
[2019-05-13] MEDS ORDERED: ONDANSETRON HCL INJ/PF 4 MG/2 ML SDV IV PRN ×2 (18:57→21:07)
[2019-05-13] MEDS ORDERED: MEPERIDINE HCL/PF INJ 25 MG/1 ML DISP.SYRIN IV PRN (18:57)
[2019-05-13] MEDS ORDERED: DIPHENHYDRAMINE HCL 50 MG/ML VIAL IV PRN (18:57)
[2019-05-13] MEDS ORDERED: FENTANYL CITRATE INJ/PF 100 MCG/2 ML AMPUL IV PRN ×3 (18:57)
[2019-05-13] MEDS ORDERED: PROMETHAZINE HCL INJ 25 MG/1 ML VIAL IV PRN ×2 (18:57)
[2019-05-13] MEDS ORDERED: CEFAZOLIN INJ 1 GM VIAL ONE (20:27)
[2019-05-13] MEDS ORDERED: KETOROLAC TROMETHAMINE 10 MG TABLET PO PRN (21:07)
--- NOTE | 2019-05-13 21:07 | Operative Report ---
Operative Report DATE OF SURGERY: 05/13/19 PREOPERATIVE DIAGNOSIS: Acute appendicitis POSTOPERATIVE DIAGNOSIS: Same with early phlegmon OPERATION: Laparoscopic appendectomy SURGEON: SONA MARQUEZ ANESTHESIA: GA TISSUE REMOVED OR ALTERED: 1 appendix COMPLICATIONS: None INTRAOPERATIVE FINDINGS: See below PROCEDURE: The patient was taken to the main holding area to the operating room where general anesthesia was induced. Sanchez catheter was inserted. Arms were abducted, abdomen exposed, prepped and draped in sterile fashion. Instrumentation was set up for laparoscopic appendectomy. Surgical plan and surgical timeout were conducted. Markings were made on the skin for 3 port laparoscopy. The skin above the umbilicus was anesthetized with 1% plain lidocaine. A small vertically oriented incision was made with a #15 blade. The Veress needle was inserted into the peritoneal cavity, pneumoperitoneum was established, Veress needle was removed, and a 5 mm port was inserted. A 5 mm flexible scope was inserted and under direct visualization 2 additional ports were placed 1 5 mm in the suprapubic position and a 12 mm left lower quadrant. Of note there was no evidence of vascular or visceral injury. Findings were significant for the appendix acutely inflamed, and stuck down in the right hemipelvis adjacent to the right tube and ovary. We placed the patient in extreme Trendelenburg position and rotated to her left side. Using a combination of blunt and suction dissection, we freed the appendix from its position. It was not grossly perforated. The appendix and mesoappendix were grasped, and from the terminal ileum, and the inferior surface of the cecum. Some adhesions were divided with hook cautery. We now the appendix and mesoappendix suspended cleanly from all surrounding structures. We brought onto the field a 35 mm [place] stapler, blue load. This was fired 1 time across the appendix and mesoappendix at its base. Appendix was now placed in an Endobag and brought out of the patient through the left lower quadrant port site. We checked for bleeding there was none. We did a minimal irrigation of the cul-de-sac, then placed a drain, a large Matti in the office and sewed it to the skin with 2-0 Prolene suture. The drain was brought out through the supra pubic port site. We leveled the patient check for bleeding there was none. Remaining ports were removed, pneumoperitoneum evacuated, wounds closed with 0 Vicryl 3-0 Vicryl benzoin and Steri-Strips. Patient tolerated the procedure well, extubated, and taken recovery room stable condition.
[2019-05-14] MEDS: ACETAMINOPHEN INJ/PF 1000 MG/100 ML SDV IV SCH ×2 (00:54→06:47)
[2019-05-14] MEDS ORDERED: CEFAZOLIN INJ 1 GM VIAL ONE (01:55)
[2019-05-14] MEDS ORDERED: CEFAZOLIN 1 GM/D5W RTU 1 GM/50 ML RTUPB IV SCH (02:00)
[2019-05-14 09:08] VITALS: BP 106/62
[2019-05-14] MEDS ORDERED: CEFAZOLIN SODIUM 1 GM in DEXTROSE 5%-WATER 50 ML IV SCH (10:00)
--- NOTE | 2019-05-16 16:17 | PDOC DISCHARGE SUMMARY ---
General - Admit/Disc Date/PCP Admission Date/Primary Care Provider: 05/13/19 17:54 GLADYS SKY MD Discharge Date: 05/14/19 - Discharge Diagnosis Final Diagnosis: Acute appendicitis - Additional Information Discharge Diet: As Tolerated, Regular Discharge Activity: Balance Activity w/Rest, No Lifting Over 10 Pounds, Pelvic Rest, No tub bath Referrals: SONA VINCENT MD [ACTIVE STAFF] - 05/28/19 1:15 pm (PLEASE CALL THE OFFICE FOR ANY QUESTIONS OR CONCERNS.) GLADYS SKY MD [Primary Care Provider] - Follow up as needed Home Medications: Ibuprofen [Motrin 800 mg Tablet] 800 mg PO Q8HP PRN 05/13/19 [id number]/Iron/Folic/Docusate [Citranatal Rx Tablet] 1 each PO DAILY 05/13/19 History of Present Illiness History of Present Illness: LIO KAPLAN is a 29 year old female with 2 days of abdominal pains and CT scan done on 05/13/2019 showed acute appendicitis. Hospital Course Hospital Course: Patient then underwent laparoscopic appendectomy on 05/13/[address] Vincent. Postoperatively she did very well and discharged improved on 05/14/2019 Physical Exam Vital Signs: Temp Pulse Resp BP Pulse Ox 98.5 F 53 L 16 106/62 98 05/14/19 10:19 05/14/19 10:19 05/14/19 10:19 05/14/19 10:19 05/14/19 10:19 Exam: Right lower quadrant tenderness Results Laboratory Results: WBC 15.6 10^3/uL (4.0-10.5) H 05/13/19 11:20 RBC 4.21 10^6/uL (3.72-5.28) 05/13/19 11:20 Hgb 12.7 g/dL (12.0-15.5) 05/13/19 11:20 Hct 37.8 % (36.0-47.0) 05/13/19 11:20 MCV 90 fl (80-97) 05/13/19 11:20 MCH 30.1 pg (27.0-33.4) 05/13/19 11:20 MCHC 33.6 g/dL (32.0-36.0) 05/13/19 11:20 RDW 13.2 % (11.5-14.0) 05/13/19 11:20 Plt Count 253 10^3/uL (150-450) 05/13/19 11:20 Lymph % (Auto) 8.7 % (13-45) L 05/13/19 11:20 Routt % (Auto) 9.5 % (3-13) 05/13/19 11:20 Eos % (Auto) 0.0 % (0-6) 05/13/19 11:20 Baso % (Auto) 0.1 % (0-2) 05/13/19 11:20 Absolute Neuts (auto) 12.7 10^3/uL (1.7-8.2) H 05/13/19 11:20 Absolute Lymphs (auto) 1.4 10^3/uL (0.5-4.7) 05/13/19 11:20 Absolute Monos (auto) 1.5 10^3/uL (0.1-1.4) H 05/13/19 11:20 Absolute Eos (auto) 0.0 10^3/uL (0.0-0.6) 05/13/19 11:20 Absolute Basos (auto) 0.0 10^3/uL (0.0-0.2) 05/13/19 11:20 Seg Neutrophils % 81.7 % (42-78) H 05/13/19 11:20 Sodium 140.7 mmol/L (137-145) 05/13/19 11:20 Potassium 4.3 mmol/L (3.6-5.0) 05/13/19 11:20 Chloride 101 mmol/L (98-107) 05/13/19 11:20 Carbon Dioxide 27 mmol/L (22-30) 05/13/19 11:20 Anion Gap 13 (5-19) 05/13/19 11:20 BUN 15 mg/dL (7-20) 05/13/19 11:20 Creatinine 0.87 mg/dL (0.52-1.25) 05/13/19 11:20 Est GFR ( Amer) > 60 (>60) 05/13/19 11:20 Est GFR (MDRD) Non-Af > 60 (>60) 05/13/19 11:20 Glucose 92 mg/dL (75-110) 05/13/19 11:20 Calcium 9.3 mg/dL (8.4-10.2) 05/13/19 11:20 Total Bilirubin 0.7 mg/dL (0.2-1.3) 05/13/19 11:20 Direct Bilirubin 0.2 mg/dL (0.0-0.4) 05/13/19 11:20 Neonat Total Bilirubin Not Reportable 05/13/19 11:20 Neonat Direct Bilirubin Not Reportable 05/13/19 11:20 Neonat Indirect Bili Not Reportable 05/13/19 11:20 AST 22 U/L (14-36) 05/13/19 11:20 ALT 28 U/L (<35) 05/13/19 11:20 Alkaline Phosphatase 72 U/L (38-126) 05/13/19 11:20 Total Protein 7.6 g/dL (6.3-8.2) 05/13/19 11:20 Albumin 4.5 g/dL (3.5-5.0) 05/13/19 11:20 Serum HCG, Qual NEGATIVE (NEGATIVE) 05/13/19 11:20 Urine Color SUPA 05/13/19 11:20 Urine Appearance SLIGHTLY-CLOUDY 05/13/19 11:20 Urine pH 7.0 (5.0-9.0) 05/13/19 11:20 Ur Specific [place] 1.031 05/13/19 11:20 Urine Protein 100 mg/dL (NEGATIVE) H 05/13/19 11:20 Urine Glucose (UA) NEGATIVE mg/dL (NEGATIVE) 05/13/19 11:20 Urine Ketones NEGATIVE mg/dL (NEGATIVE) 05/13/19 11:20 Urine Blood SMALL (NEGATIVE) H 05/13/19 11:20 Urine Nitrite NEGATIVE (NEGATIVE) 05/13/19 11:20 Urine Bilirubin NEGATIVE (NEGATIVE) 05/13/19 11:20 Urine Urobilinogen NEGATIVE mg/dL (<2.0) 05/13/19 11:20 Ur Leukocyte Esterase LARGE (NEGATIVE) H 05/13/19 11:20 Urine WBC (Auto) 49 /HPF 05/13/19 11:20 Urine RBC (Auto) 43 /HPF 05/13/19 11:20 U Hyaline Cast (Auto) 1 /LPF 05/13/19 11:20 Squamous Epi Cells Auto 2 /HPF 05/13/19 11:20 Amorphous Sediment Auto TRACE /HPF 05/13/19 11:20 Urine Mucus (Auto) OCC /LPF 05/13/19 11:20 Urine Ascorbic Acid NEGATIVE (NEGATIVE) 05/13/19 11:20 Impressions: Transvaginal US 05/13/19 10:53 IMPRESSION: NORMAL TRANSVAGINAL PELVIC ULTRASOUND. Abdomen/Pelvis CT 05/13/19 14:29 IMPRESSION: 1. The appendix is enlarged to 1.5 cm and contains appendicoliths at the neck and near the tip, with mild adjacent fat stranding (series 601, image 33, series 3, image 60). Findings are consistent with acute appendicitis. No evidence of perforation or abscess. 2. Cholelithiasis. Plan Health Concerns: 1month post normal vaginal delivery Plan of Treatment: Laparoscopic appendectomy on 05/13/2019 to be followed up in the surgical clinic in 2 weeks Time Spent: Less than 30 Minutes
== END 2019-05-14 11:35 | disposition home or self-care (01) ==
LOC: ER 09:32 → EH 17:54 → 2N 21:55
PROVIDERS: ADMIT Surgery; ATTEND Surgery
DX: O99.63 Diseases of the digestive system complicating the puerperium (principal); K35.30 Acute appendicitis with localized peritonitis, without perforation or gangrene; O90.89 Other complications of the puerperium, not elsewhere classified; F45.8 Other somatoform disorders; R53.81 Other malaise; R53.1 Weakness
CPT/HCPCS: 99285; 96374; 96375; 36415; 84703; 85025; 80053; 81001; 88304 ×2; 76830; 93976; 74177; 00840; 44970; G0378 ×3; J2250; J0690 ×2; J3490 ×4; J1100; J1885 ×2; J2765; J2270; J2710; J1170; J0330; J2405; J7030; J7120; J2704; J0131; 840